=== PATIENT | male | born 1980 | race Caucasian/White ===

== ENCOUNTER 2018-10-21 10:10 | Emergency (ER) | payer MEDICAID ==
[~2018-10-21] VITALS: Ht 170.2 cm; Wt 66.5 kg
--- NOTE | 2018-10-21 10:38 | NUR ---
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
[2018-10-21] MEDS ORDERED: ONDANSETRON 2MG/ML, 2ML IVPush ONE (11:00)
[2018-10-21] MEDS ORDERED: FAMOTIDINE 20 MG/2 ML IVP ONE (11:00)
[2018-10-21] MEDS ORDERED: SODIUM CHLORIDE 0.9% 1,000ML IVBOLUS ONE (11:00)
[2018-10-21] MEDS ORDERED: FAMOTIDINE 20 MG/2 ML ONE (11:10)
[2018-10-21] MEDS ORDERED: ONDANSETRON 2MG/ML, 2ML ONE (11:10)
[2018-10-21 11:24] LABS: BASOPHILS # (AUTO) 0.03 x10^3/uL (0-0.1); BASOPHILS % (AUTO) 0 % (0-1); EOSINOPHILS % (AUTO) 0 % (1-7); LYMPHOCYTES # (AUTO) 0.62 x10^3/uL (1-3.4); LYMPHOCYTES % (AUTO) 5 % (22-44); MD NO; MEAN CORPUSCULAR HEMOGLOBIN 31.8 pg (27.5-34.5); MEAN CORPUSCULAR HGB CONC 33.9 g/dL (33.2-36.2); MONOCYTES # (AUTO) 0.54 x10^3/uL (0.2-0.8); MONOCYTES % (AUTO) 4 % (2-9); NEUTROPHILS # (AUTO) 11.26 x10^3/uL (1.8-6.8); NEUTROPHILS % (AUTO) 90 % (42-75); PLATELET COUNT 435 x10^3/uL (130-400); RED BLOOD COUNT 5.24 x10^6/uL (4.38-5.82); RED CELL DISTRIBUTION WIDTH 13.1 % (9.4-14.8)
[2018-10-21 11:29] LABS: ALANINE AMINOTRANSFERASE 23 U/L (12-78); ALBUMIN 3.8 g/dL (3.4-5.0); ANION GAP 10 mmol/L (5-15); CALCIUM 8.8 mg/dL (8.5-10.1); CHLORIDE 105 mmol/L (98-107); CREATININE 1.01 mg/dL (0.7-1.3)
[2018-10-21 11:31] LABS: ALKALINE PHOSPHATASE 90 U/L (45-117); TOTAL PROTEIN 8.5 g/dL (6.4-8.2)
[2018-10-21 11:57] LABS: MICROSCOPIC INDICATED
--- NOTE | 2018-10-21 12:13 | NUR ---
PT TO CT VIA [facility]
--- NOTE | 2018-10-21 12:22 | NUR ---
PT TO CT VIA [facility]
[2018-10-21] MEDS ORDERED: OMNIPAQUE 350 MG/ML, 100ML BOTTLE ONE (12:26)
[2018-10-21 12:27] LABS: CULTURE INDICATED? NO
[2018-10-21 13:44] VITALS: BP 124/89
== END 2018-10-21 13:46 | disposition home or self-care (01) ==
LOC: ED 12:40
DX: R11.2 Nausea with vomiting, unspecified (principal); R19.7 Diarrhea, unspecified; R10.84 Generalized abdominal pain
CPT/HCPCS: 36415; 71046; 74177; 80053; 81001; 83690; 85025; 96361; 96374; 96375; 99284; J2405; J3490; J7030; Q9967

== ENCOUNTER 2019-05-03 18:33 | Emergency (ER) | payer MEDICAID ==
[~2019-05-03] VITALS: Ht 170.2 cm; Wt 66.0 kg
[2019-05-03] MEDS ORDERED: HYDROcodone/APAP 5/325 TABLET ONE (18:59)
[2019-05-03] MEDS ORDERED: HYDROcodone/APAP 5/325 TABLET PO PRN (19:00)
[2019-05-03] MEDS ORDERED: DIAZEPAM 5 MG TABLET ONE (19:00)
[2019-05-03] MEDS ORDERED: DIAZEPAM 5 MG TABLET PO ONE (19:00)
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
--- NOTE | 2019-05-03 19:22 | NUR ---
PT TO XRAY
[2019-05-03] MEDS ORDERED: HYDROcodone/APAP 5/325 TABLET PO ONE (19:30)
[2019-05-03 19:45] VITALS: BP 120/86
--- NOTE | 2019-05-03 20:32 | NUR ---
Patient given discharge instructions and they have confirmed that they understand the instructions. Patient ambulatory with steady gait.
== END 2019-05-03 20:35 | disposition home or self-care (01) ==
LOC: ED 19:41
DX: S22.21XA Fracture of manubrium, initial encounter for closed fracture (principal); S29.9XXA Unspecified injury of thorax, initial encounter; M54.2 Cervicalgia; F17.210 Nicotine dependence, cigarettes, uncomplicated; X58.XXXA Exposure to other specified factors, initial encounter; Y93.89 Activity, other specified; Y92.89 Other specified places as the place of occurrence of the external cause; Y99.8 Other external cause status
CPT/HCPCS: 71046; 71120; 72050; 72072; 72220; 99283; 99406